=== PATIENT | female | born 1965 | race Caucasian/White ===

== ENCOUNTER 2020-09-23 11:39 | Outpatient (REF) | payer MEDICAID, SELFPAY ==
--- NOTE | ~2020-09-23 | MM_ITS ---
EXAMINATION: MM SCREENING DIGITAL BREAST TOMOSYNTHESIS, BILATERAL CLINICAL INFORMATION: Screening. Asymptomatic. The lifetime risk of breast cancer based on the Tyrer-Cuzick Model is 5%. COMPARISON: Mammography: 11/22/2009 (baseline) TECHNIQUE: Digital breast tomosynthesis is performed in both the craniocaudal and mediolateral oblique views along with computer-aided detection (CAD). Synthesized 2D images are generated from the tomosynthesis. FINDINGS: The breasts are almost entirely fatty (ACR BI-RADS breast composition Category a). There are no significant masses, abnormal calcifications, or other abnormalities. The axilla and skin contours are unremarkable. MM/MM tomosynthesis screening BI IMPRESSION: No mammographic evidence of malignancy. ASSESSMENT: BI-RADS 1: Negative RECOMMENDATION: Routine annual mammography screening. This patient's information was entered into a reminder system with a target due date for their next mammogram.
== END 2020-09-23 11:40 | disposition home or self-care (01) ==
LOC: HO.MAMMO 11:39
PROVIDERS: PCP Nurse Practitioner Family; Visit Provider Nurse Practitioner Family
DX: Z12.31 Encounter for screening mammogram for malignant neoplasm of breast (principal)
CPT/HCPCS: 77063; 77067

== ENCOUNTER 2021-03-31 10:11 | Outpatient (REF) | payer MEDICAID, SELFPAY ==
--- NOTE | ~2021-03-31 | CT_ITS ---
EXAMINATION: CT SINUS WITHOUT CONTRAST CLINICAL INFORMATION: Chronic sinusitis. COMPARISON: None. TECHNIQUE: CT paranasal sinuses with coronal and sagittal reconstructions. This CT examination was performed using dose optimization techniques as appropriate, variously including the following: *Automated exposure control *Adjustment of mA and/or kV according to patient size (this includes techniques or standardized protocols for targeted exams where dose is matched to indication/reason for exam; i.e. extremities or head) *Use of iterative reconstruction technique DLP: 99 mGy-cm. FINDINGS: FRONTAL SINUSES AND DRAINAGE PATHWAYS: Normal. MAXILLARY SINUSES AND DRAINAGE PATHWAYS: Normal. The infundibula are patent. ETHMOID SINUSES: There is a small mucous retention cyst within the posterior right ethmoid sinus. No mucosal thickening or air-fluid level identified. The ethmoid roofs are symmetric. SPHENOID SINUSES AND DRAINAGE PATHWAYS: Normal. The sphenoid ostia are patent. There is some inspissated secretions seen within the sphenoid sinus without mucosal thickening being noted. No air-fluid level is seen. NASAL CAVITY/NASOPHARYNX: The nasal cavity is clear. There is no nasal septal deviation/spurring. The nasopharynx is symmetric. ADDITIONAL RELEVANT FINDINGS: The TMJs articulate normally. The orbits and skull base soft tissues are unremarkable. The middle ear cavities and mastoid air cells are clear. Limited evaluation demonstrates no acute intracranial findings. CT/CT sinus wo con IMPRESSION: No evidence of acute sinusitis. Minor changes of chronic sinusitis as described. Patent ostiomeatal complex.
== END 2021-03-31 10:12 | disposition home or self-care (01) ==
LOC: HO.CT 10:11
PROVIDERS: PCP Registered Nurse Community Health; Visit Provider Registered Nurse Community Health
DX: J32.9 Chronic sinusitis, unspecified (principal)
CPT/HCPCS: 70486

== ENCOUNTER 2021-04-04 13:55 | Emergency (ER) | payer MEDICAID, SELFPAY ==
--- NOTE | ~2021-04-04 | CT_ITS ---
EXAMINATION: CT KNEE WITHOUT CONTRAST, LEFT CLINICAL INFORMATION: Fall. Question quadriceps tendon tear and tibial spine fracture. COMPARISON: Most recent left knee radiographs dated 04/04/2021. Bilateral knee radiographs dated 02/01/2020. TECHNIQUE: Contiguous axial CT images of the left knee were obtained without contrast. Sagittal and coronal reformats were provided and reviewed. This CT examination was performed using dose optimization techniques as appropriate, variously including the following: *Automated exposure control *Adjustment of mA and/or kV according to patient size (this includes techniques or standardized protocols for targeted exams where dose is matched to indication/reason for exam; i.e. extremities or head) *Use of iterative reconstruction technique DOSE: 192 mGy-cm FINDINGS: There is a comminuted fracture through the tibial spine with multiple small, mildly displaced fracture fragments measuring 3.4 x 2.0 cm (AP x ML). There is approximately 0.5 cm of fracture gap which contacts both the medial and lateral tibial articular surface. There is cortical depression at the posterior aspect of the medial tibial spine measuring up to 1.3 cm in ML dimension, consistent with an impaction fracture. There is an impaction fracture at the posterior aspect of the lateral tibial plateau which measures approximately 1.9 x 2.1 cm (AP x ML) with approximately 0.1 cm of cortical step-off, consistent with an impaction fracture. No dislocation. Large lipohemarthrosis. Evaluation of the meniscus and intra-articular ligaments is significantly limited on CT examination. CT/CT knee LT wo con IMPRESSION: 1. Comminuted fracture of the tibial spine measuring up to 3.4 x 2.0 cm (AP x ML) with multiple associated fracture fragments. The fracture gap measures up to 0.5 cm and contacts both the medial and lateral tibial articular surfaces. 2. Impaction fractures at the posterior aspect of the medial and lateral tibial plateau. 3. Large lipohemarthrosis.
--- NOTE | ~2021-04-04 | XR_ITS ---
EXAMINATION: XR KNEE, LEFT CLINICAL INFORMATION: Fall COMPARISON: 02/01/2020 TECHNIQUE: Four views of the left knee. FINDINGS: Irregularity is seen involving the tibial plateau, best seen on lateral imaging. This may involve the tibial spine. No articular depression of the medial and lateral compartments. There is a large lipohemarthrosis. Enthesophyte formation of the patella. XR/XR knee LT 4V IMPRESSION: Tibial plateau fracture, likely involving the tibial spine. No articular depression. Large lipohemarthrosis.
--- NOTE | ~2021-04-04 | XR_ITS ---
EXAMINATION: XR CHEST CLINICAL INFORMATION: Medical clearance for surgery. COMPARISON: 06/17/2016 TECHNIQUE: Frontal view of the chest was obtained. FINDINGS: The lungs are well expanded. There is no focal consolidation, edema, or effusion. Calcified granuloma at the right midlung is again noted. No pneumothorax. The cardiomediastinal silhouette is within normal limits. No acute osseous abnormality. XR/XR chest 1V IMPRESSION: No acute pulmonary finding.
[2021-04-04 14:02] VITALS: BP 145/84; PULSE 95; RESP 18; TEMP 36.7; O2SAT 99; BMI 30.7
[2021-04-04] MEDS: oxyCODONE HCl Immed Release 5 MG TABLET PO (15:33)
[2021-04-04] MEDS: Ibuprofen 800 MG TABLET PO (15:33)
[2021-04-04 16:36] VITALS: RESP 18
[2021-04-04] MEDS: 0.9 % Sodium Chloride 1,000 ML 999 ML IVCONT (16:36)
[2021-04-04 16:37] LABS: MANUAL DIFF FLAG NO
[2021-04-04 16:41] LABS: Basophils Absolute Auto 0.1 X10*3/uL (0.0-0.2); Basophils Percent Auto 0.4 % (0-2); Eosinophils Absolute Auto 0.1 X10*3/uL (0.0-0.4); Eosinophils Percent Auto 0.4 % (0-4); Hematocrit 42.9 % (37.0-47.0); Hemoglobin 14.2 g/dl (12.0-16.0); Imm Gran Abs Auto 0.05 X10*3/uL (0.00-0.03); Imm Gran Pct Auto 0.4 % (0.0-0.4); Lymphocytes Absolute Auto 1.6 X10*3/uL (1.2-4.9); Lymphocytes Percent Auto 13.3 % (20-40); Mean Corpuscular HGB Conc 33.1 g/dl (31.0-35.0); Mean Corpuscular Hemoglobin 31.3 pg (27.0-33.0); Mean Corpuscular Volume 94.5 fL (80.0-98.0); Mean Platelet Volume 10.6 fL (9.4-12.3); Monocytes Absolute Auto 0.6 X10*3/uL (0.1-1.2); Monocytes Percent Auto 5.1 % (2-11); Neutrophils Absolute Auto 9.8 x10*3/uL (2.0-8.3); Neutrophils Percent Auto 80.4 % (45-73); Platelet Count 297 X10*3/uL (160-400); Red Blood Count 4.54 X10*6/uL (4.20-5.50); Red Cell Distribution Width 13.3 % (11.0-16.0); White Blood Count 12.2 X10*3/uL (4.8-10.8)
[2021-04-04 16:48] LABS: INTERNATIONAL NORM RATIO 1.1 (0.9-1.1); Prothrombin Time 12.2 SEC (9.9-13.0)
[2021-04-04 16:50] LABS: Appearance Urine CLEAR; Color Urine YELLOW; Glucose Urine UA NEG (NEG); Leukocyte Esterase Urine NEG (NEG); Nitrite Urine NEG (NEG); Specific Gravity - Urine <= 1.005 (1.005-1.025); Urine Blood NEG (NEG); Urine Ketones NEG (NEG); Urine Protein NEG (NEG-TRACE)
[2021-04-04 16:51] LABS: Partial Thromboplastin Time 33.6 SEC (24.1-38.0)
[2021-04-04 16:52] LABS: COVID-19 Test Negative (Negative); IDNOW Serial# 9DD0AD1C
[2021-04-04 16:59] LABS: Alanine Aminotransferase 16 U/L (0-31); Albumin Level 4.5 g/dL (3.5-5.0); Alkaline Phosphatase 102 U/L (39-117); Anion Gap 13 (12-20); Aspartate Amino Transferase 20 U/L (5-31); Bilirubin Total 0.6 mg/dL (0.0-1.0); Blood Urea Nitrogen 7 mg/dL (9-16); Calcium 9.2 mg/dL (8.4-10.2); Carbon Dioxide 30 mmol/L (22-29); Chloride 105 mmol/L (96-108); Estimated Glomerular Filt Rate > 60; Glucose Random 92 mg/dL (60-115); Magnesium 2.1 mg/dL (1.6-2.6); Potassium 3.9 mmol/L (3.3-5.1); Sodium 144 mmol/L (135-145); Total Protein 7.6 g/dL (6.5-8.0)
--- NOTE | 2021-04-04 16:59 | ED.FALL ---
HPI - Fall General Chief Complaint: Fall Stated Complaint: fall - knee injury Time Seen by Provider: 04/04/21 15:23 Source: patient Mode of arrival: ambulatory Limitations: language barrier (Ukrainian-speaking) History of Present Illness HPI Narrative: 56-year-old female with a past medical history of HLD, HTN, asthma, depression, chronic neck pain currently on 5 mg of oxycodone daily presenting to the ED with complaints of left knee/leg pain after she had a mechanical fall at home prior to arrival. She reports that she was about to paint something in her house and she stepped on a step stool that had wheels on it and the stepstool moved and she landed directly on her left knee and since then she has been unable to walk and is having severe pain. She denies head injury or loss of consciousness. She denies being on any blood thinners. She denies any other injury complaints or concerns at this time. MD complaint: fall Onset (ago): minute(s) (Prior to arrival) Fall from: other (Standing on a chair with wheels) Fall witnessed: no Place fall occurred: home Loss of consciousness: none Prolonged down time: no Symptoms prior to fall: none Context: tripped/slipped Location of injury - extremities: left: knee and lower leg Severity: severe Severity scale (1-10): >10 Quality: aching and throbbing Associated symptoms (after fall): unable to walk (Due to left leg pain) Related Data Home Medications Medication Instructions Recorded Confirmed albuterol sulfate 1 amp INHALATION Q4H PRN 04/04/21 04/04/21 ascorbic acid (vitamin C) 500 mg 500 mg PO DAILY 04/04/21 04/04/21 tablet (Vitamin C) atorvastatin 20 mg tablet 20 mg PO BEDTIME 04/04/21 04/04/21 cetirizine 10 mg tablet 10 mg PO DAILY 04/04/21 04/04/21 diphenhydramine HCl 25 mg tablet 25 mg PO BEDTIME 04/04/21 04/04/21 (Banophen) fluticasone 100 mcg-salmeterol 50 1 puff INHALATION Q12H PRN 04/04/21 04/04/21 mcg/dose blistr powdr for inhalation (Advair Diskus) montelukast 10 mg tablet 10 mg PO DAILY 04/04/21 04/04/21 omeprazole 20 mg capsule,delayed 20 mg PO DAILY 04/04/21 04/04/21 release oxycodone-acetaminophen 5 mg-325 1 tab PO BID PRN 04/04/21 04/04/21 mg tablet sennosides 8.6 mg tablet (Senna 17.2 tab PO BEDTIME PRN 04/04/21 04/04/21 Laxative) venlafaxine 150 mg 150 mg PO DAILY 04/04/21 04/04/21 capsule,extended release 24 hr venlafaxine 37.5 mg 37.5 mg PO DAILY 04/04/21 04/04/21 capsule,extended release 24 hr Previous Rx's Medication Instructions Recorded oxycodone 10 mg tablet,crush 10 mg PO Q12H #20 tab 04/04/21 resistant,extended release 12 hr (OxyContin) Allergies Allergy/AdvReac Type Severity Reaction Status Date / Time citalopram [Celexa] Allergy Unknown eye Verified 04/04/21 17:34 swelling and itching hydrocodone [From VICODIN] Allergy Unknown MAJOR Verified 04/04/21 17:34 HEADACHE paroxetine [From PAXIL] Allergy Unknown ITCHY RED Verified 04/04/21 17:34 EYES penicillin V Allergy Unknown rash, Verified 04/04/21 17:34 hallucinations Penicillins Allergy Unknown HIVES, Verified 04/04/21 17:34 BLURRED VISION From Celexa Allergy Unknown ITCHY EYES Uncoded 02/15/20 16:44 hydrocodone Allergy Unknown Headache Uncoded 04/04/21 17:34 Vicodin Allergy Unknown major Uncoded 01/24/20 00:00 headache Review of Systems Review of Systems: Constitutional : No Weight loss, No Fever, No Chills, No Night Sweats, No Fatigue, No Malaise ENT/Mouth : No Hearing loss, No Ear Pain, No Nasal Congestion, No Sinus Pain, No Hoarseness, No sore throat, No Rhinorrhea, No Swallowing Difficulty Eyes: No Eye Pain, No Swelling, No Redness, No Foreign Body, No Discharge, No Vision Changes Cardiovascular : No Chest Pain, No SOB, No Dyspnea on Exertion, No Orthopnea, No Edema, No Palpitations Respiratory : No Cough, No Sputum, No Wheezing, No Smoke Exposure, No Dyspnea Gastrointestinal : No Nausea, No Vomiting, No Diarrhea, No Constipation, No abdominal Pain, No Hematochezia, No Melena Genitourinary : no irregular bleeding, No Dysuria, No Urinary Frequency, No Hematuria, No Urinary Incontinence, No Urgency, No Flank Pain, No Urinary Flow Changes, No Hesitancy Musculoskeletal : Positive left knee pain and unable to walk due to pain to the left knee, No Myalgias, No Joint Swelling Skin : No Skin Lesions, No rash Neuro : No Weakness, No Numbness, No Paresthesias, No Loss of Consciousness, No Dizziness, No Headache Psych : No Anxiety/Panic, No Depression, No SI/HI/AH/VH, No Social Issues, Heme/Lymph: No Bruising, No Bleeding,No Lymphadenopathy Endocrine : No Polyuria, No Polydipsia, No Temperature Intolerance Yes all other systems are reviewed and are negative [facility] Past Medical History Attestation statement: The following information was validated with the patient. Medical History Arthropathy of left knee HTN (hypertension) Social History Social History Advance Directives: No Patient : No Physical Exam Vital Signs: Vital Signs: Last Vital Signs Temp 98.1 F 04/04/21 14:02 Pulse 72 04/04/21 17:39 Resp 18 04/04/21 17:39 BP 125/80 04/04/21 17:39 Pulse Ox 99 04/04/21 17:39 Body Mass Index 30.7 vital signs have been reviewed as normal and appeared to be correct. Blood pressure hypertensive 145/84 Heart rate normal. Respiration rate normal. Temperature normal. Oxygen saturation normal. Appearance: Alert. Oriented X3. No acute distress. Head: Normal external exam. Normocephalic. Atraumatic. No Jones signs noted. No raccoon eyes noted Eyes: PERRLA. EOMI. Conjunctiva and sclera normal. Eyelids normal. ENT: Pharynx normal. Uvula midline. Moist mucous membranes. No trismus noted. No drooling noted. No muffled voice noted. Neck: Normal inspection. Neck supple. FROM. No adenopathy. Thyroid Normal. No meningeal signs. No neck mass noted. CVS: Normal heart rate and rhythm. Heart sound normal. Pulses normal throughout. No murmurs/rales/gallops. Respiratory: No respiratory distress. Painless inspiration. Breath sounds normal. No wheezes/rales/rhonchi noted. Chest nontender. No accessory muscle usage noted or decreased air movement noted. Abdomen: Soft and nontender. Bowel sounds normal in all 4 quadrants. No distention noted. No organomegaly noted. No visible injury noted. Back: Nontender. Full range of motion noted. No rashes/lesion/induration/fluctuance or signs of infection noted. Skin: Skin warm and dry. Normal skin color. Normal skin turgor. No rashes/lesions/lacerations noted. Extremities: Patient with tenderness palpation to left tibia at the medial aspect with soft tissue swelling she has limited range of motion where she has difficult time performing flexion or straight leg raise or trying to kick her leg out. Although she reports it feels comfortable if the knee is extended. No obvious ligamentous or tendon injury although due to patient unable to perform full flexion or straight leg raise unable to completely rule out. No signs of infection. No lower extremity edema or calf tenderness is noted. Otherwise all other Extremities exhibit normal range of motion and nontender. Neuro: Oriented X 3. No motor deficit. No sensory deficit. Reflexes normal. No focal neuro deficits noted. We have not had the patient ambulate due to left knee/leg pain. Vascular: + radial pulses/+ 2 distal pedal pulses/+2 dorsalis pedis b/l. Normal cap refill. No cyanosis noted to upper extremity nails and lower extremity toes nails. Course Course Course Narrative: 16:30pm - 56-year-old female with a past medical history of HLD, HTN, asthma, depression, chronic neck pain currently on 5 mg of oxycodone daily presenting to the ED with complaints of left knee/leg pain after she had a mechanical fall at home prior to arrival. She reports that she was about to paint something in her house and she stepped on a step stool that had wheels on it and the stepstool moved and she landed directly on her left knee and since then she has been unable to walk and is having severe pain. She denies head injury or loss of consciousness. She denies being on any blood thinners. She denies any other injury complaints or concerns at this time. - X-ray ordered in triage revealed tibial plateau fracture likely involving the tibial spine. No articular depression. Large lipohemarthrosis. - On exam patient is very cheerful and severe pain with her knee extended out she reports it is comfortable when she tries to flex it she reports severe pain. No obvious tendon or ligament injury although due to patient unable to flex or perform straight leg raise or kick her leg out unable to rule out. Therefore I consulted with Orthopedic ZACHARY Stewart and she came and evaluated the patient and recommended a CT scan of left knee to evaluate for possible quad tendon tear and to further evaluate tibial spinal fracture Reevaluation(s) Reevaluation #1: - [place] [address] most likely reactive. Carbon dioxide 30. BUN 7. Otherwise all other labs are within normal limits. UA within normal limits no evidence of UTI. COVID swab negative on 04/04/2021. - chest x-ray within normal limits no acute processes are noted. - arrived at this time and revealed comminuted fracture of the tibial spine measuring up to 3.4 x 2.0 cm with multiple associated fractured fragments. The fracture gap measured up to 0.5 cm and contact both the medial and lateral tibial articular surfaces. Impaction fractures at the posterior aspect of the medial and lateral tibial plateau. Large Lipohemarthrosis. - therefore consulting with orthopedic PA again at this time for further recommendations. Patient is comfortable she received 5 mg of oxycodone and 10 mg of OxyContin and her left leg has the pillow under it and it is raise her daughters at bedside. Will continue to monitor. Time: 18:00 Reevaluation #2: - I consulted with orthopedic ZACHARY Stewart and due to no evidence of quadricep ruptured tendon or ligament tears patient can be discharged with a knee immobilizer nonweightbearing and crutches and follow up in clinic although I did offer to admit for pain control to the medicine team although patient declined and would rather go home. She is currently on a pain contract I explained to her that she should take the OxyContin prescription and bring it to her pain management explained to them that she has a fracture and is in severe pain and her regular prescribed 5 mg oxycodone may not be enough for her fracture. She understands this and agrees with the plan. Along with instructions to not bear any weight on that leg and to return if any new or worsening symptoms. Patient and daughter at bedside understand and agree this plan. Time: 18:08 Procedures Orthopedic Splinting/Casting Injury #1: Side: left Lower Extremity Injury Location: knee and lower leg Lower Extremity Immobilizer: knee immobilizer Other Orthopedic Equipment: crutches MDM - Fall Medical Records Attestation: I reviewed the patient's medical records. Lab Data Attestation: I reviewed the patient's lab results. Result diagrams: 04/04/21 16:30 04/04/21 16:30 Labs: Lab Results 04/04/21 04/04/21 04/04/21 Range/Units 16:21 16:30 16:30 WBC 12.2 H (4.8-10.8) X10*3/uL RBC 4.54 (4.20-5.50) X10*6/uL Hgb 14.2 (12.0-16.0) g/dl Hct 42.9 (37.0-47.0) % MCV 94.5 (80.0-98.0) fL MCH 31.3 (27.0-33.0) pg MCHC 33.1 (31.0-35.0) g/dl RDW 13.3 (11.0-16.0) % Plt Count 297 (160-400) X10*3/uL MPV 10.6 (9.4-12.3) fL Immature Gran % (Auto) 0.4 (0.0-0.4) % Neut % (Auto) 80.4 H (45-73) % Lymph % (Auto) 13.3 L (20-40) % [place] % (Auto) 5.1 (2-11) % Eos % (Auto) 0.4 (0-4) % Baso % (Auto) 0.4 (0-2) % Lymph # (Auto) 1.6 (1.2-4.9) X10*3/uL [place] # (Auto) 0.6 (0.1-1.2) X10*3/uL Eos # (Auto) 0.1 (0.0-0.4) X10*3/uL Baso # (Auto) 0.1 (0.0-0.2) X10*3/uL Abs Immat Gran (auto) 0.05 H (0.00-0.03) X10*3/uL Absolute Neuts (auto) 9.8 H (2.0-8.3) x10*3/uL Absolute Nucleated RBC 0.000 (0.0-0.012) X10*3/uL Nucleated RBC % (auto) 0.0 (0.0-0.2) /100WBC Hold Purple Top PT 12.2 (9.9-13.0) SEC INR 1.1 (0.9-1.1) APTT 33.6 (24.1-38.0) SEC Sodium (135-145) mmol/L Potassium (3.3-5.1) mmol/L Chloride (96-108) mmol/L Carbon Dioxide (22-29) mmol/L Anion Gap (12-20) BUN (9-16) mg/dL Creatinine (0.5-1.4) mg/dL Estim Creat Clear Calc Estimated GFR Random Glucose (60-115) mg/dL Calcium (8.4-10.2) mg/dL Magnesium (1.6-2.6) mg/dL Total Bilirubin (0.0-1.0) mg/dL AST (5-31) U/L ALT (0-31) U/L Alkaline Phosphatase (39-117) U/L Total Protein (6.5-8.0) g/dL Albumin (3.5-5.0) g/dL Urine Color YELLOW Urine Appearance CLEAR Urine pH 6.0 (5.0-8.0) Ur Specific [place] <= 1.005 (1.005-1.025) Urine Protein NEG (NEG-TRACE) MG/DL Urine Glucose (UA) NEG (NEG) MG/DL Urine Ketones NEG (NEG) MG/DL Urine Blood NEG (NEG) Urine Nitrite NEG (NEG) Ur Leukocyte Esterase NEG (NEG) COVID-19 (ABHISHEK) (Negative) COVID-19 Clin Com 04/04/21 04/04/21 04/04/21 Range/Units 16:30 16:30 16:30 WBC (4.8-10.8) X10*3/uL RBC (4.20-5.50) X10*6/uL Hgb (12.0-16.0) g/dl Hct (37.0-47.0) % MCV (80.0-98.0) fL MCH (27.0-33.0) pg MCHC (31.0-35.0) g/dl RDW (11.0-16.0) % Plt Count (160-400) X10*3/uL MPV (9.4-12.3) fL Immature Gran % (Auto) (0.0-0.4) % Neut % (Auto) (45-73) % Lymph % (Auto) (20-40) % [place] % (Auto) (2-11) % Eos % (Auto) (0-4) % Baso % (Auto) (0-2) % Lymph # (Auto) (1.2-4.9) X10*3/uL [place] # (Auto) (0.1-1.2) X10*3/uL Eos # (Auto) (0.0-0.4) X10*3/uL Baso # (Auto) (0.0-0.2) X10*3/uL Abs Immat Gran (auto) (0.00-0.03) X10*3/uL Absolute Neuts (auto) (2.0-8.3) x10*3/uL Absolute Nucleated RBC (0.0-0.012) X10*3/uL Nucleated RBC % (auto) (0.0-0.2) /100WBC Hold Purple Top SEE NOTE PT (9.9-13.0) SEC INR (0.9-1.1) APTT (24.1-38.0) SEC Sodium 144 (135-145) mmol/L Potassium 3.9 (3.3-5.1) mmol/L Chloride 105 (96-108) mmol/L Carbon Dioxide 30 H (22-29) mmol/L Anion Gap 13 (12-20) BUN 7 L (9-16) mg/dL Creatinine 0.80 (0.5-1.4) mg/dL Estim Creat Clear Calc 85.0 Estimated GFR > 60 Random Glucose 92 (60-115) mg/dL Calcium 9.2 (8.4-10.2) mg/dL Magnesium 2.1 (1.6-2.6) mg/dL Total Bilirubin 0.6 (0.0-1.0) mg/dL AST 20 (5-31) U/L ALT 16 (0-31) U/L Alkaline Phosphatase 102 (39-117) U/L Total Protein 7.6 (6.5-8.0) g/dL Albumin 4.5 (3.5-5.0) g/dL Urine Color Urine Appearance Urine pH (5.0-8.0) Ur Specific [place] (1.005-1.025) Urine Protein (NEG-TRACE) MG/DL Urine Glucose (UA) (NEG) MG/DL Urine Ketones (NEG) MG/DL Urine Blood (NEG) Urine Nitrite (NEG) Ur Leukocyte Esterase (NEG) COVID-19 (ABHISHEK) Negative (Negative) COVID-19 Clin Com See Note Imaging Data CT scan of left knee without contrast: Attestation: I personally reviewed and interpreted this imaging study as follows: Radiologist's impression: FINDINGS: There is a comminuted fracture through the tibial spine with multiple small, mildly displaced fracture fragments measuring 3.4 x 2.0 cm (AP x ML). There is approximately 0.5 cm of fracture gap which contacts both the medial and lateral tibial articular surface. There is cortical depression at the posterior aspect of the medial tibial spine measuring up to 1.3 cm in ML dimension, consistent with an impaction fracture. There is an impaction fracture at the posterior aspect of the lateral tibial plateau which measures approximately 1.9 x 2.1 cm (AP x ML) with approximately 0.1 cm of cortical step-off, consistent with an impaction fracture. No dislocation. Large lipohemarthrosis. Evaluation of the meniscus and intra-articular ligaments is significantly limited on CT examination.? CT/CT knee LT wo con IMPRESSION: 1. Comminuted fracture of the tibial spine measuring up to 3.4 x 2.0 cm (AP x ML) with multiple associated fracture fragments. The fracture gap measures up to 0.5 cm and contacts both the medial and lateral tibial articular surfaces. ? 2. Impaction fractures at the posterior aspect of the medial and lateral tibial plateau. ? 3. Large lipohemarthrosis. Chest x-ray: Attestation: I personally reviewed and interpreted this imaging study as follows: Radiologist's impression: FINDINGS: The lungs are well expanded. There is no focal consolidation, edema, or effusion. Calcified granuloma at the right midlung is again noted. No pneumothorax. The cardiomediastinal silhouette is within normal limits. No acute osseous abnormality. XR/XR chest 1V IMPRESSION: No acute pulmonary finding. Left knee x-ray: Attestation: I personally reviewed and interpreted this imaging study as follows: Radiologist's impression: FINDINGS: Irregularity is seen involving the tibial plateau, best seen on lateral imaging. This may involve the tibial spine. No articular depression of the medial and lateral compartments. There is a large lipohemarthrosis. Enthesophyte formation of the patella.? XR/XR knee LT 4V IMPRESSION: Tibial plateau fracture, likely involving the tibial spine. No articular depression. Large lipohemarthrosis. Critical Care Time Critical Care Time Critical Care Time: Yes Total Critical Care Time: 60 Attestation: I personally attest to this time spent taking care of the patient Discharge Plan Discharge Clinical Impression: Fall, Closed fracture of left tibial plateau Patient Disposition: Home, Self-Care Instructions: Leg Fracture (ED), Crutch Instructions (ED), Fall Prevention (ED), Knee Immobilizer (ED) Additional Instructions: It is very important that you do not bear any weight on that leg please keep the knee immobilizer on whenever you try to get up and use the crutches because you do not want your fracture to get worse. Please follow-up with her primary care provider and pain management to let them know that we gave you an extra prescription for pain control that you need this. Also call on Wednesday to make an appointment with her orthopedic the numbers listed below and return if any new or worsening symptoms. Prescriptions: New oxycodone [OxyContin] 10 mg tablet,oral only,ext.rel.12 hr 10 mg PO Q12H Qty: 20 RF: 0 No Action sennosides [Senna Laxative] 8.6 mg tablet 17.2 tab PO BEDTIME PRN (Reason: constipation) RF: 0 venlafaxine 37.5 mg capsule,extended release 24hr 37.5 mg PO DAILY RF: 0 atorvastatin 20 mg tablet 20 mg PO BEDTIME RF: 0 albuterol sulfate 2.5 mg /3 mL (0.083 %) solution for nebulization 1 amp inhalation Q4H PRN (Reason: Wheezing) RF: 0 cetirizine 10 mg tablet 10 mg PO DAILY RF: 0 venlafaxine 150 mg capsule,extended release 24hr 150 mg PO DAILY RF: 0 oxycodone-acetaminophen 5-325 mg tablet 1 tab PO BID PRN (Reason: severe pain) RF: 0 diphenhydramine HCl [Banophen] 25 mg tablet 25 mg PO BEDTIME RF: 0 omeprazole 20 mg capsule,delayed release(DR/EC) 20 mg PO DAILY RF: 0 montelukast 10 mg tablet 10 mg PO DAILY RF: 0 fluticasone propion-salmeterol [Advair Diskus] 100-50 mcg/dose blister with device 1 puff inhalation Q12H PRN (Reason: Wheezing) RF: 0 ascorbic acid (vitamin C) [Vitamin C] 500 mg Tablet 500 mg PO DAILY RF: 0 Referrals: Macho White MD [Physician] - 04/07/21 (Call on Wednesday to make a follow-up appointment within 1-2 weeks) Print Language: Ukrainian
--- NOTE | 2021-04-04 17:32 | PHA.MEDREC ---
Pharmacy Consult ? Medication Reconciliation Pharmacy has completed the medication reconciliation. patient reports she is no longer taking amlodipine due to side effects. She reports using her Flovent inhaler as needed. She also reports that she take venlafaxine as needed for depression however I left it in as a daily medication. Humera Alcala, PharmD
[2021-04-04] MEDS: oxyCODONE HCl ER 10 MG TAB.ER.12H PO (17:36)
[2021-04-04 17:39] VITALS: BP 125/80; PULSE 72; RESP 18; O2SAT 99
[2021-04-04 18:42] VITALS: BP 133/81; PULSE 70; RESP 18; TEMP 36.8; O2SAT 99
== END 2021-04-04 19:14 | disposition home or self-care (01) ==
PROVIDERS: Physician Assistant Medical; Emergency Provider Emergency Medicine; PCP Registered Nurse Community Health
DX: S82.112A Displaced fracture of left tibial spine, initial encounter for closed fracture (principal); W11.XXXA Fall on and from ladder, initial encounter; E78.5 Hyperlipidemia, unspecified; I10 Essential (primary) hypertension; G89.29 Other chronic pain; M54.2 Cervicalgia; Z79.891 Long term (current) use of opiate analgesic; Y93.89 Activity, other specified; Y92.009 Unspecified place in unspecified non-institutional (private) residence as the place of occurrence of the external cause; Y99.9 Unspecified external cause status; Z20.822 Contact with and (suspected) exposure to COVID-19
CPT/HCPCS: 36415; 71045; 73564; 73700; 80053; 81003; 83735; 85025; 85610; 85730; 87635; 96360; 99284

== ENCOUNTER → 2021-04-09 14:24 | Outpatient (BNVA) | payer MEDICAID, SELFPAY | PROVIDERS: PCP Registered Nurse Community Health; Visit Provider Physician Assistant | DX: S82.142A Displaced bicondylar fracture of left tibia, initial encounter for closed fracture (principal) | CPT/HCPCS: 99212 ==

== ENCOUNTER 2021-05-05 07:38 | Outpatient (REF) | payer MEDICAID, SELFPAY | END 2021-05-05 07:39 | disposition home or self-care (01) | LOC: HO.HOSX 07:38 | PROVIDERS: Visit Provider Physician Assistant | DX: Z13.89 Encounter for screening for other disorder (principal) ==

== ENCOUNTER 2021-05-08 06:29 | Outpatient (REF) | payer MEDICAID, SELFPAY ==
--- NOTE | ~2021-05-08 | XR_ITS ---
EXAMINATION: XR KNEE, LEFT CLINICAL INFORMATION: Comminuted fracture tibial spine. Follow-up. COMPARISON: Radiographs left knee 04/04/2021, standing AP knees 02/01/2020. CT left knee 04/04/2021 TECHNIQUE: AP and lateral views of the left knee. FINDINGS: There is borderline cortical step off medial tibial spine similar to prior radiographs. The tibial spine fracture line is not clearly visualized on plain film. There is no change in alignment or interval distraction. No erosive change or destructive process. There is small to moderate suprapatellar effusion decreased in size from 04/04/2021. There is spurring at the quadriceps insertion patella are again seen. XR/XR knee LT 2V IMPRESSION: No change in alignment. Fracture line not well visualized on plain film. Effusion decreased.
== END 2021-05-08 06:30 | disposition home or self-care (01) ==
LOC: HO.HOSX 06:29
PROVIDERS: Visit Provider Physician Assistant
DX: S82.142D Displaced bicondylar fracture of left tibia, subsequent encounter for closed fracture with routine healing (principal); X58.XXXD Exposure to other specified factors, subsequent encounter
CPT/HCPCS: 73560; 99212

== ENCOUNTER 2021-06-19 09:03 | Outpatient (REF) | payer MEDICAID, SELFPAY ==
--- NOTE | ~2021-06-19 | XR_ITS ---
EXAMINATION: XR TIBIA AND FIBULA, LEFT CLINICAL INFORMATION: M79.605 - Pain in left leg. Comminuted fracture tibial spine. Follow-up. COMPARISON: CT left knee 04/04/2021, plain films left knee 05/08/2021. TECHNIQUE: AP and lateral views of the left tibia and fibula were obtained. FINDINGS: The tibial spine fracture is faintly visible. There is no visible displacement of the fracture fragment from prior imaging. No new fracture or dislocation or destructive process. Left effusion has decreased. There is spurring at the quadriceps insertion patella. Hoffa's fat pad appears normal. Remainder of the left lower leg is unremarkable. XR/XR tibia fibula LT 2V IMPRESSION: Healing fracture tibial spine. No change in alignment.
== END 2021-06-19 09:04 | disposition home or self-care (01) ==
LOC: HO.HOSX 09:03
PROVIDERS: Visit Provider Physician Assistant
DX: S82.143D Displaced bicondylar fracture of unspecified tibia, subsequent encounter for closed fracture with routine healing (principal)
CPT/HCPCS: 73590; 99212

== ENCOUNTER 2021-07-24 11:00 | Outpatient (RCR) | payer MEDICAID, SELFPAY ==
--- NOTE | 2021-04-28 13:58 | MHC.PT.EP ---
[facility] [place] Office [place] Office [place] Office [address] Edda Miller [address] [phone] F: [phone] F: [phone] F: [phone] F: [phone] Physical Therapy Plan of Care Date of Evaluation: Date of Surgery: Diagnosis: fracture of L tibia Assessment: pt presents to PT 3 wks and 3 days post-tibial spine fx secondary to mechanical fall. She is currently non-weightbearing for at least the next 6 wks. pt presents to physical therapy with pain, decreased range of motion, decreased strength, impaired functional mobility, impaired postural awareness, and gait deviations. pt is a good candidate for skilled PT due to age, potential remediation of impairments, typical disease/condition progression and prognosis, comorbidities, and motivation. pt would benefit from tailored strengthening and stretching exercise program, functional training, gait training, postural re-training, neuromuscular re-education, modalities as needed for pain, equipment safety demonstration. Frequency and Duration: The patient will be seen 2x/wk for 12 wks Short Term Goals: pt will be I w/ HEP to promote self-management of condition. pt will improve L knee flexion to 120* to promote improved tolerance for short sitting during seated ADLs. pt will ambulate 50' w/ LRAD while maintaining NWB precautions to promote ease in household ambulation. Assisted Goals: pt will report a statistically significant improvement in self-reported outcome measure, LEFI, to promote return to PLOF. pt will improve L knee flexion and extension strength to at least 4/5 to improve ability to ascend/descend stairs. pt will ambulate >2500' using LRAD to promote return to community ambulation. Treatment Plan: Modalities to reduce pain, spasms and effusion. Manual therapy to restore motion and function. Therapeutic exercise to improve strength and flexibility. Neuromuscular re-education for posture and balance. Therapeutic activities to return to functional activities of daily living. Electronically signed by: Blanche Nair PT, DPT Please sign and return to therapist. Thank you for your referral.
--- NOTE | 2021-07-25 10:38 | MHC.PT.DC ---
[facility] [place] Office [place] Office [place] Office [address] Edda Miller 140 [facility] [phone] F: [phone] F: [phone] F: [phone] F: [phone] Physical Therapy Discharge Report Diagnosis: fracture of L tibia Date of Surgery: Date of Evaluation: 04/28/21 Date of Discharge: 07/25/21 Treatments to Date: 17 Cancellations to Date: 3 No Shows to Date: 4 Discharge Status: Achieved Goals Improved Function Independent with HEP Discharge Summary: The patient overall has improved significantly regarding her knee range of motion, strength, and ability to tolerate ADLs. pt stated she feels comfortable doing her HEP on her own and would like to be discharged at this time. She has achieved all goals established at the initial evaluation. She is independent with her home exercise program. She is discharged from this physical therapy plan of care to her home exercise program at this time. Electronically signed by: Blanche Nair PT, DPT Please sign and return to therapist. Thank you for your referral.
== END 2021-07-25 10:38 | disposition home or self-care (01) ==
LOC: HO.PT 11:00
PROVIDERS: PCP Registered Nurse Community Health; Visit Provider Physician Assistant
DX: S82.142D Displaced bicondylar fracture of left tibia, subsequent encounter for closed fracture with routine healing (principal)
CPT/HCPCS: 97110; 97112; 97116; 97150; 97162; 97530

== ENCOUNTER 2021-07-31 08:52 | Outpatient (REF) | payer MEDICAID, SELFPAY ==
--- NOTE | ~2021-07-31 | XR_ITS ---
EXAMINATION: XR KNEE, LEFT CLINICAL INFORMATION: Pain in left knee COMPARISON: Left knee radiograph from 05/08/2021 TECHNIQUE: Four views of the left knee. FINDINGS: No acute visible fracture or dislocation. Redemonstration of remote fracture of the medial tibial spine with displaced fracture fragment along the lateral aspect of the medial femorotibial compartment. Enthesopathy at the quadriceps insertion site. Joint spaces and alignment are otherwise maintained. No large knee joint effusion. Soft tissues are unremarkable. XR/XR knee LT 3V IMPRESSION: 1. No acute visible fracture or dislocation. 2. Redemonstration of remote fracture of the medial tibial spine with displaced fracture fragment along the lateral aspect of the medial femorotibial compartment. 3. Enthesopathy at the quadriceps insertion site.
== END 2021-07-31 08:53 | disposition home or self-care (01) ==
LOC: HO.HOSX 08:52
PROVIDERS: Visit Provider Physician Assistant
DX: S82.142D Displaced bicondylar fracture of left tibia, subsequent encounter for closed fracture with routine healing (principal)
CPT/HCPCS: 73562; 99212